=== PATIENT | female | born 1965 | race African-American/Black ===

== ENCOUNTER 2017-12-07 06:04 | Inpatient (IN) | payer OTHER ==
[2017-12-04 12:32] VITALS: BMI 47.8
[~2017-12-07 06:04] MED LIST: CELECOXIB 200 MG CAPSULE PO ONE; GABAPENTIN 300 MG CAPSULE (FP) PO ONE; PANTOPRAZOLE 40 MG TABLET (FP) PO ONE; oxyCODONE HCL 10 MG SUSTAINED ACTING TABLET PO ONE
[2017-12-07] MEDS ORDERED: PANTOPRAZOLE 40 MG TABLET (FP) ONE (06:53)
[2017-12-07] MEDS ORDERED: CELECOXIB 200 MG CAPSULE ONE (06:53)
[2017-12-07] MEDS ORDERED: GABAPENTIN 300 MG CAPSULE (FP) ONE (06:53)
[2017-12-07] MEDS ORDERED: oxyCODONE HCL 10 MG SUSTAINED ACTING TABLET ONE (06:53)
--- NOTE | 2017-12-07 07:20 | HP ---
Admitting History and Physical - Admission Chief Complaint: right hip osteoarthritis x years History of Present Illness: 52 year old female presents today in regard to her right hip. Longstanding history of right hip osteoarthritis. Patient complains of pain, limited ROM, difficulty ambulating and difficulty with activities of daily living. Patient has failed conservative treatment options including PO medication, activity modification, exercise programs and injections. As patient has failed conservative treatment measures, patient wishes to proceed with surgical intervention - right total hip arthroplasty, MAKOplasty. History Source: Patient - Past Medical History Cardiovascular: Yes: HTN Gastrointestinal: Yes: GERD ...LMP: 11/13/17 ...: No Musculoskeletal: Yes: Osteoarthritis Endocrine: Yes: Diabetes Mellitus - Past Surgical History Additional Past Surgical History: See written history & physical. - Smoking History Smoking history: Never smoked Have you smoked in the past 12 months: No - Alcohol/Substance Use Hx Alcohol Use: Yes (SOCIALLY) Home Medications - Allergies Allergies/Adverse Reactions: Allergies Allergy/AdvReac Type Severity Reaction Status Date / Time No Known Drug Allergies Allergy Unverified 02/18/14 13:38 SUTURES Allergy Severe REJECTED Uncoded 12/04/17 12:18 SUTURES - Home Medications Home Medications: Ambulatory Orders Meloxicam 15 mg PO DAILY tablet 02/18/14 Amlodipine Besylate 5 mg PO DAILY 12/04/17 Cholecalciferol (Vitamin D3) [Vitamin D3] 5,000 unit PO DAILY 12/04/17 Lisinopril [Prinivil] 10 mg PO DAILY 12/04/17 Metformin HCl [Metformin HCl ER] 500 mg PO DAILY 12/04/17 Omeprazole Magnesium [Prilosec Otc] 20 mg PO DAILY 12/04/17 Review of Systems - Review of Systems Musculoskeletal: reports: Decreased ROM (right hip), Joint Pain (right hip) Physical Examination Vital Signs: Vital Signs Temperature 98.4 F 12/07/17 06:39 Pulse Rate 110 H 12/07/17 06:39 Respiratory Rate 20 12/07/17 06:39 Blood Pressure 150/100 12/07/17 06:39 O2 Sat by Pulse Oximetry (%) Constitutional: Yes: Well Nourished, No Distress Eyes: Yes: Conjunctiva Clear HENT: Yes: Atraumatic, Normocephalic Neck: Yes: Supple Cardiovascular: Yes: Regular Rate and Rhythm Respiratory: Yes: Regular Gastrointestinal: Yes: Soft ...Rectal Exam: Yes: Deferred Musculoskeletal: Yes: Joint Stiffness (right hip), Joint Swelling (right hip) Assessment/Plan 52 year old female presents regarding her right hip. Longstanding history of right hip osteoarthritis. Patient complains of pain, limited ROM, difficulty ambulating and difficulty with activities of daily living. Patient has failed conservative treatment options including PO medication, activity modification, exercise programs and injections. As patient has failed conservative treatment measures, patient wishes to proceed with surgical intervention - right total hip arthroplasty, MAKOplasty. Pros, cons, risks, benefits and alternatives of a right total hip arthroplasty (MAKOplasty) were discussed at length with the patient. Patient confirms her understanding. Patient consents to proceed with a right total hip arthroplasty (MAKOplasty).
[2017-12-07] MEDS ORDERED: MIDAZOLAM HCL 2 MG/2 ML SINGLE DOSE VIAL ONE ×5 (07:22→10:49)
[2017-12-07] MEDS ORDERED: DEXAMETHASONE SOD PHOSPHATE/PF 10 MG/ML SDV ONE (07:22)
[2017-12-07] MEDS ORDERED: BUPIVACAINE HCL/PF (5 MG/ML) 30 ML VIAL IJ ONE (07:22)
[2017-12-07] MEDS ORDERED: LIDOCAINE 1% P/F 10 MG/ML VIAL ONE (07:23)
[2017-12-07] MEDS ORDERED: ceFAZolin SODIUM 1 GM VIAL ONE ×2 (07:28→09:11)
[2017-12-07] MEDS ORDERED: VANCOMYCIN 1,000 MG VIAL (RESTRICTED TO ID ONLY) ONE (07:28)
[2017-12-07] MEDS ORDERED: TRANEXAMIC ACID 1000 MG/10 ML VIAL ONE ×2 (07:28→09:12)
[2017-12-07] MEDS ORDERED: TRANEXAMIC ACID 1000 MG/10 ML VIAL IVPUSH ONE (08:00)
[2017-12-07] MEDS ORDERED: CEFAZOLIN 2 GM in DEXTROSE 5%-WATER - 50 ML IVPB ONE (08:00)
[2017-12-07] MEDS ORDERED: ROPIVICAINE 0.2%/MORPH PF/KETOROLAC - 51ML DISP.SYRINGE IA ONE ×2 (08:00→10:31)
[2017-12-07] MEDS ORDERED: SUCCINYLCHOLINE CHLORIDE 200 MG/10 ML VIAL ONE (09:11)
[2017-12-07] MEDS ORDERED: DEXAMETHASONE SOD PHOSPHATE 4 MG/1 ML VIAL ONE (09:11)
[2017-12-07] MEDS ORDERED: PROPOFOL 20 ML ONE (09:11)
[2017-12-07] MEDS ORDERED: ONDANSETRON 4 MG/2 ML VIAL ONE (09:11)
[2017-12-07] MEDS ORDERED: ePHEDrine SULFATE 50 MG/1 ML AMPULE ONE (09:19)
[2017-12-07] MEDS ORDERED: KETOROLAC TROMETHAMINE 30 MG/1 ML VIAL ONE (12:44)
[2017-12-07] MEDS ORDERED: traMADol HCL 50 MG TABLET ONE (12:44)
[2017-12-07] MEDS ORDERED: ACETAMINOPHEN INJECTION 100 ML IVPB ONE (12:44)
[2017-12-07] MEDS ORDERED: KETOROLAC TROMETHAMINE 30 MG/1 ML VIAL IVPUSH ONE (12:57)
[2017-12-07] MEDS ORDERED: ACETAMINOPHEN 1000 MG/100 ML VIAL (NON FORMULARY) IVPB ONE ×2 (13:00→13:11)
[2017-12-07] MEDS ORDERED: oxyCODONE HCL 5 MG TABLET PO PRN (13:02)
[2017-12-07] MEDS ORDERED: ONDANSETRON 4 MG/2 ML VIAL IVPUSH PRN ×2 (13:02→13:13)
[2017-12-07] MEDS ORDERED: PROMETHAZINE HCL 25 MG/1 ML VIAL IVPUSH PRN (13:02)
[2017-12-07] MEDS ORDERED: traMADol HCL 50 MG TABLET PO ONE (13:05)
--- NOTE | 2017-12-07 13:10 | OP ---
Operative Note - Note: Operative Date: 12/07/17 Pre-Operative Diagnosis: right hip severe OA Operation: right OLIVE ISABEL Post-Operative Diagnosis: Same as Pre-op Surgeon: Naun Sims Dials Inspector: Madison Carroll Anesthesia: Spinal Estimated Blood Loss (mls): 300
[2017-12-07] MEDS ORDERED: MAG HYDROX/AL HYDROX/SIMETH 30 ML UNIT-DOSE CUP PO PRN (13:13)
[2017-12-07] MEDS ORDERED: MAGNESIUM HYDROX 2400MG/30ML ORAL SUSPENSION 30 ML CUP PO PRN (13:13)
[2017-12-07] MEDS ORDERED: LACTATED RINGERS SOLUTION 1,000 ML IV SCH (13:15)
--- NOTE | 2017-12-07 13:56 | SPEC ---
DATE OF OPERATION: 12/07/2017 PREOPERATIVE DIAGNOSIS: Right hip osteoarthritis. POSTOPERATIVE DIAGNOSIS: Right hip osteoarthritis. PROCEDURE: Right total hip replacement with MAKOplasty robotic navigation. ATTENDING: Maria A Oliveira MD DIE TURNER: SHANA Hall ANESTHESIA: Spinal plus sedation. ESTIMATED BLOOD LOSS: 300 mL COMPLICATIONS: None. DISPOSITION: The patient was transferred to the PACU in stable condition. IMPLANTS USED: [place] Acc[place]ade II size 5 femoral component, Gisselle Tritanium 52-mm acetabular component with MDM bipolar head ball and 28-mm +4-mm offset inner ceramic head ball. Two acetabular screws, 20 and 30 mm. INDICATIONS: This is a 52-year-old female who presented to the office complaining of severe bilateral hip pain. She was seen and examined by Dr. Oliveira and diagnosed with severe bilateral hip osteoarthritis. She had complete degeneration of both of her hips and severe pain and ambulatory dysfunction. She had failed conservative management and was, therefore, indicated for a total hip replacement. We chose to proceed with the right first because that was the most painful. The risks, benefits, and alternatives to the procedure were explained to the patient in great detail, and she elected to proceed with surgery. On the day of surgery, the patient was taken to the operating room and placed on the OR table. Spinal anesthesia was administered by the anesthesiologist. The patient was then positioned in the lateral decubitus position on the table and all bony prominences were padded. An axillary roll was placed. The operative hip was then prepped and draped in the usual sterile fashion and intravenous antibiotics were given for infection prophylaxis. A surgical time-out was then performed with the team, and the patients identity, procedure, side, availability of implants, and the administration of antibiotics were confirmed. An approximately 15-cm longitudinal incision was made through the skin centered on the greater trochanter of the hip. This dissection was carried down through the subcutaneous tissues to the deep fascia. This fascia was then incised and a Cobra was placed around the inferior femoral neck. Electrocautery was used to reflect the anterior 40% of the gluteus medius and minimus starting at the musculotendinous junction and leaving a cuff for closure. This was reflected to reveal the capsule of the hip joint. An anterior capsulectomy was performed and the femoral head and neck were visualized. Grade 4 changes were noted diffusely throughout the joint. At this point, three small stab incisions were made superior to the main incision along the iliac crest. Three self-drilling Steinmann pins were then placed and the [employer] pelvic array was attached. Reference points on the limb were then entered into the robotic device and the limb length deficiency, offset, and femoral neck resection level were then calculated by the software. The hip was then dislocated with traction and external rotation. An oscillating saw was used to make the femoral neck cut at the level previously templated, and the femoral head was removed. Attention was then turned to the acetabulum. Retractors were then placed around the acetabulum and the labrum was removed. An acetabular checkpoint pin and the [employer] software were used to register the contours of the acetabulum. The acetabulum was then reamed in a single stage to the preoperatively templated size using the [employer] robotic arm. The appropriately sized cup was then impacted and had solid fixation as well as the preset inclination and version of 40 and 20 degrees, respectively. A polyethylene liner was then placed in the cup. Attention was then turned back to the femur, which was externally rotated for improved visualization. A femoral neck elevator was used to present the femoral neck cut, a box osteotome was used to enter the femoral canal, and a canal finder was used to go down the femoral shaft. The Apolinar broaches were used sequentially until the optimal scratch fit was achieved. This correlated with the preoperatively templated size. From here, several different offset head and neck configurations were tested until excellent stability and length were obtained. These measurements were quantified using the [employer] software. All trial components were then removed, the femur was copiously irrigated, and the final components were placed. Leg length and stability were checked again and found to be excellent. Irrigation was performed again. Wound closure was started by repairing the abductor muscles with a no. 2 FiberWire stitch in a Krackow configuration passed through bone tunnels in the greater trochanter and tied over a bony bridge. This repair was then reinforced with a 0 V-Loc 180 barbed suture. Next, no. 1 Polysorb and 0 V-Loc 180 were used to close the fascia. The deep subcutaneous tissue was closed with no. 1 Polysorb sutures, and 2-0 Polysorb was used for the superficial subcutaneous tissue. The skin was closed using both 3-0 V-Loc 90 suture in a running subcuticular fashion and SwiftSet skin adhesive. The Apolinar array and pins were removed from the iliac crest and the stab incision sites were irrigated and closed with 4-0 Polysorb sutures and SwiftSet skin adhesive. Once this was completed, a sterile dressing was applied. The patient was then awakened and taken to the PACU in stable condition. ADDENDUM 1: After final implants were placed, a 3-minute dilute Betadine lavage was performed. Following this, the wound was thoroughly irrigated with normal saline via pulsatile lavage, and would closure was begun. ADDENDUM 2: Please disregard the wound closure portion of the template. The patient recounts a remote history of an allergic reaction to VICRYL SUTURES. Therefore, these were not used. The arthrotomy and gluteus medius tendon were closed with FiberWire sutures in a Krackow-stitch pattern, oversewn with 0 V-Loc 180, running on a filament barbed suture. The deep fascia/IT band was closed with number 2 FiberWire suture and number 0 V-Loc 180. The deep subcutaneous tissue was closed with number 0 V-Loc 180 suture. The superficial subcutaneous tissue was closed with 2-0 V-Loc 90, running barbed monofilament suture. The skin was closed with 3-0 V-Loc 90 monofilament suture, and then, Dermabond skin adhesive was applied for additional closure strength and watertight seal. Following this, sterile Aquacel dressings were applied. MARIA A OLIVEIRA M.D. [id number]
[2017-12-07] MEDS ORDERED: KETOROLAC TROMETHAMINE 30 MG/1 ML VIAL IVPUSH SCH (14:00)
[2017-12-07] MEDS: oxyCODONE HCL 5 MG TABLET PO PRN ×2 (16:00→21:36)
[2017-12-07] MEDS: CEFAZOLIN 2 GM/D5W 2 GM/50 ML ML IVPB SCH (18:00)
[2017-12-07] MEDS: traMADol HCL 50 MG TABLET PO SCH (19:06)
[2017-12-07] MEDS: KETOROLAC TROMETHAMINE 30 MG/1 ML VIAL IVPUSH SCH (19:06)
[2017-12-07] MEDS: ACETAMINOPHEN 325 MG TABLET (FP) PO SCH (19:07)
[2017-12-07] MEDS ORDERED: DEXAMETHASONE SOD PHOSPHATE 10 MG/1 ML VIAL IVPB ONE (20:00)
[2017-12-07] MEDS: SENNOSIDES/DOCUSATE COMBO (SENNA PLUS) TABLET (UD) PO SCH (21:35)
[2017-12-07] MEDS: GABAPENTIN 300 MG CAPSULE (FP) PO SCH (21:36)
[2017-12-07] MEDS: CELECOXIB 200 MG CAPSULE PO SCH (21:36)
[2017-12-07] MEDS: oxyCODONE HCL 10 MG SUSTAINED ACTING TABLET PO SCH (21:36)
[2017-12-07] MEDS: ASCORBIC ACID 500 MG TABLET (FP) PO SCH (21:36)
[2017-12-07] MEDS ORDERED: GABAPENTIN 300 MG CAPSULE (FP) PO SCH (22:00)
[2017-12-08] MEDS: ACETAMINOPHEN 325 MG TABLET (FP) PO SCH ×4 (00:01→18:46)
[2017-12-08] MEDS: traMADol HCL 50 MG TABLET PO SCH ×4 (00:01→18:47)
[2017-12-08] MEDS: KETOROLAC TROMETHAMINE 30 MG/1 ML VIAL IVPUSH SCH ×2 (01:00→06:19)
[2017-12-08] MEDS: CEFAZOLIN 2 GM/D5W 2 GM/50 ML ML IVPB SCH (02:37)
[2017-12-08] MEDS: oxyCODONE HCL 5 MG TABLET PO PRN ×3 (06:35→21:40)
[2017-12-08] MEDS ORDERED: DEXAMETHASONE SOD PHOSPHATE 10 MG/1 ML VIAL ONE (06:39)
[2017-12-08 07:40] LABS: HEMATOCRIT 34.5 % (32.4-45.2); HEMOGLOBIN 11.3 GM/dl (10.7-15.3); MCH 27.3 pg (25.7-33.7); MCHC 32.6 g/dl (32.0-36.0); MEAN CELL VOLUME 83.7 fl (80-96); MEAN PLT VOLUME 7.9 fl (7.5-11.1); PLATELET COUNT 373 K/MM3 (134-434); RBC 4.12 M/mm3 (3.60-5.2); RDW 13.9 % (11.6-15.6); WHITE BLOOD COUNT 15.7 K/mm3 (4.0-10.8)
[2017-12-08 08:50] LABS: ANION GAP 10 (8-16); BLOOD UREA NITROGEN 20 mg/dl (7-18); CALCIUM 7.9 mg/dl (8.4-10.2); CHLORIDE 100 mmol/L (98-107); CO2 20 mmol/L (22-28); CREATININE 1.4 mg/dl (0.6-1.3); GLUCOSE,RANDOM 163 mg/dl (74-106); POTASSIUM 3.6 mmol/L (3.5-5.1); SODIUM 130 mmol/L (136-145)
[2017-12-08] MEDS: SENNOSIDES/DOCUSATE COMBO (SENNA PLUS) TABLET (UD) PO SCH ×2 (09:25→21:41)
[2017-12-08] MEDS: APIXABAN 2.5 MG TABLET PO SCH ×2 (09:25→21:40)
[2017-12-08] MEDS: GABAPENTIN 300 MG CAPSULE (FP) PO SCH ×2 (09:25→21:39)
[2017-12-08] MEDS: CELECOXIB 200 MG CAPSULE PO SCH (09:26)
[2017-12-08] MEDS: ASCORBIC ACID 500 MG TABLET (FP) PO SCH ×2 (09:26→21:41)
[2017-12-08] MEDS: LISINOPRIL 10 MG TABLET (FP) PO SCH (09:26)
[2017-12-08] MEDS: MULTIVITAMINS (DAILY MVI) TABLET (FP) PO SCH (09:26)
[2017-12-08] MEDS: amLODIPine BESYLATE 5 MG TABLET (FP) PO SCH (09:26)
[2017-12-08] MEDS: PANTOPRAZOLE 40 MG TABLET (FP) PO SCH (09:26)
[2017-12-08] MEDS: oxyCODONE HCL 10 MG SUSTAINED ACTING TABLET PO SCH ×2 (09:27→21:39)
--- NOTE | 2017-12-08 09:36 | PN ---
Progress Note, Physician Chief Complaint: s/p right total hip replacement under spinal anesthesia History of Present Illness: paravertebral nerve block for postop pain control - Current Medication List Current Medications: Active Medications Acetaminophen (Tylenol -) 650 mg PO Q6H [facility] Stop: 12/10/17 18:59 Last Admin: 12/08/17 06:19 Dose: 650 mg Al Hydroxide/Mg Hydroxide (Mylanta Oral Suspension -) 30 ml PO Q4H PRN PRN Reason: DYSPEPSIA Amlodipine Besylate (Norvasc -) 5 mg PO DAILY [facility] Last Admin: 12/08/17 09:26 Dose: 5 mg Apixaban (Eliquis -) 2.5 mg PO BID [facility] Last Admin: 12/08/17 09:25 Dose: 2.5 mg Ascorbic Acid (Vitamin C -) 500 mg PO BID [facility] Last Admin: 12/08/17 09:26 Dose: 500 mg Celecoxib (Celebrex -) 200 mg PO BID [facility] Last Admin: 12/08/17 09:26 Dose: 200 mg Fentanyl (Sublimaze Injection -) 50 mcg IVPUSH [id number] PRN PRN Reason: PAIN-PACU ORDER X 4 DOSES ONLY Gabapentin (Neurontin -) 300 mg PO BID [facility] Stop: 12/10/17 21:59 Last Admin: 12/08/17 09:25 Dose: 300 mg Lisinopril (Prinivil) 10 mg PO DAILY [facility] Last Admin: 12/08/17 09:26 Dose: 10 mg Magnesium Hydroxide (Milk Of Magnesia -) 30 ml PO PRN PRN PRN Reason: CONSTIPATION Metformin HCl (Glucophage Xr -) 500 mg PO DAILY [facility] Last Admin: 12/08/17 09:25 Dose: 500 mg Multivitamins/Minerals/Vitamin C (Tab-A-Vit -) 1 tab PO DAILY [facility] Last Admin: 12/08/17 09:26 Dose: 1 tab Ondansetron HCl (Zofran Injection) 4 mg IVPUSH Q6H PRN PRN Reason: NAUSEA Oxycodone HCl (Roxicodone -) 5 mg PO Q3H PRN PRN Reason: PAIN LEVEL 1-5 Oxycodone HCl (Roxicodone -) 10 mg PO Q3H PRN PRN Reason: PAIN LEVEL 6-10 Last Admin: 12/08/17 06:35 Dose: 10 mg Oxycodone HCl (Oxycontin -) 10 mg PO BID [facility] Stop: 12/10/17 13:02 Last Admin: 12/08/17 09:27 Dose: 10 mg Pantoprazole Sodium (Protonix -) 40 mg PO DAILY [facility] Last Admin: 12/08/17 09:26 Dose: 40 mg Promethazine HCl (Phenergan Injection -) 12.5 mg IVPUSH Q6H PRN PRN Reason: NAUSEA-FOR RESCUE AFTER 15 MIN Senna/Docusate Sodium (Pericolace -) 2 tablet PO BID [facility] Last Admin: 12/08/17 09:25 Dose: 2 tablet Tramadol HCl (Ultram -) 50 mg PO Q6H [facility] Last Admin: 12/08/17 06:19 Dose: 50 mg - Objective Vital Signs: Vital Signs Temperature 98.5 F 12/08/17 05:00 Pulse Rate 104 H 12/08/17 06:54 Respiratory Rate 18 12/08/17 08:18 Blood Pressure 110/70 12/08/17 06:54 O2 Sat by Pulse Oximetry (%) 96 12/08/17 08:18 Constitutional: Yes: Well Nourished Cardiovascular: Yes: WNL Respiratory: Yes: WNL Gastrointestinal: Yes: WNL Labs: CBC, BMP 12/08/17 07:15 12/08/17 07:15 Assessment/Plan Patient walking around with PT, no adverse effects of anesthetic, dept of anesthesia will sign off care at this time.
[2017-12-09] MEDS: ACETAMINOPHEN 325 MG TABLET (FP) PO SCH ×2 (00:29→06:03)
[2017-12-09] MEDS: traMADol HCL 50 MG TABLET PO SCH ×2 (00:30→06:02)
--- NOTE | 2017-12-09 01:56 | PN ---
Progress Note (short form) - Note Progress Note: Pt seen and examined. Doing well. AVSS Selected Entries 12/08/17 12/08/17 12/08/17 18:00 20:14 22:00 Temperature 98.8 F 97.6 F Pulse Rate 90 69 Respiratory 18 18 Rate Blood Pressure 130/66 121/71 O2 Sat by Pulse 98 Oximetry (%) Oxygen Delivery Room Air Method Laboratory Tests 12/08/17 12/08/17 07:15 07:15 WBC 15.7 H Hgb 11.3 Hct 34.5 Plt Count 373 Sodium 130 L Potassium 3.6 Chloride 100 Carbon Dioxide 20 L Anion Gap 10 BUN 20 H Creatinine 1.4 H Random Glucose 163 H Calcium 7.9 L Gen: NAD RLE: c/d/i, NVID A/P s/p R ISABEL PT/OOB D/C home in AM
--- NOTE | 2017-12-09 02:02 | DS ---
Physical Examination Vital Signs: Vital Signs Temperature 97.6 F 12/08/17 22:00 Pulse Rate 69 12/08/17 22:00 Respiratory Rate 18 12/08/17 22:00 Blood Pressure 121/71 12/08/17 22:00 O2 Sat by Pulse Oximetry (%) 98 12/08/17 20:14 Labs: CBC, BMP 12/08/17 07:15 12/08/17 07:15 Discharge Summary Reason For Visit: RIGHT HIP OSTEOARTHRITIS Current Active Problems Osteoarthritis of right hip (Acute) Procedures: Principal: Right ISABEL Hospital Course: Admitted for elective surgery. Procedure performed without complications. Pt received postoperative antibiotic prophylaxis and DVT ppx. Ambulated with physical therapy. Stable for discharge home with outpatient followup. Condition: Stable - Instructions Diet, Activity, Other Instructions: Dr Sims - Hip Replacement Instructions Keep the Aquacel dressing on until removed by Dr. Sims in 10-14 days - it is antibacterial and waterproof and you can shower with it on. Call the office for a follow-up appointment with Dr. Sims in 10-14 days. [phone] Take ELIQUIS 2.5mg twice daily for 35 days to prevent blood clots in your legs. Continue taking Prilosec (omeprazole) daily for 6 weeks to protect against heartburn and ulcers. Take Cephalexin (antibiotic) 3x/day for 10 days to help prevent skin infection. Take a multivitamin, stool softener and extra Vitamin C supplement daily. For pain: *Mild pain (1-3/10): Take 1 Tramadol tablet every 4 hours as needed. Moderate pain (4-6/10): Take 1 Tramadol tablet and 1 Percocet tablet every 4 hours as needed. Severe pain (7-10/10): Take 1 Tramadol tablet and 2 Percocet tablets every 4 hours as needed. Activity: You can put as much weight on the operative leg as you want. For the first 6 weeks, all you need to do is walk around the house, go up/down stairs, and sit down/get up. After 6 weeks when everything is healed (and bone has grown into the implant) you will be sent for more intensive outpatient physical therapy. Always use a walker or cane for balance and to prevent falls. Expect to see swelling / bruising from the operative site all the way down to your toes. Wear the Compression stocking on the operative side during the day to minimize how much swelling there is in your foot/ankle. Don't wear the stocking at night. You don't have to wear the stocking on the other side. Disposition: VNS/HOME HEALTH CARE - Home Medications Comprehensive Discharge Medication List: Ambulatory Orders Meloxicam 15 mg PO DAILY tablet 02/18/14 Amlodipine Besylate 5 mg PO DAILY 12/04/17 Cholecalciferol (Vitamin D3) [Vitamin D3] 5,000 unit PO DAILY 12/04/17 Lisinopril [Prinivil] 10 mg PO DAILY 12/04/17 Metformin HCl [Metformin HCl ER] 500 mg PO DAILY 12/04/17 Omeprazole Magnesium [Prilosec Otc] 20 mg PO DAILY 12/04/17 Apixaban [Eliquis -] 2.5 mg PO BID #70 tablet 12/09/17 Ascorbic Acid [Vitamin C -] 500 mg PO BID tablet 12/09/17 Cephalexin Monohydrate [Keflex -] 500 mg PO TID #30 capsule 12/09/17 Multivitamins [Multivit ([facility] Formulary)] 1 tab PO DAILY tab 12/09/17 Oxycodone HCl/Acetaminophen [Percocet 5-325 mg Tablet] 1 - 2 tab PO Q4H PRN #60 tablet MDD 10 12/09/17 Sennosides/Docusate Sodium [Pericolace -] 2 tablet PO BID tablet 12/09/17 traMADol HCL [Ultram -] 50 mg PO Q4H PRN #42 tablet MDD 6 12/09/17
[2017-12-09] MEDS: oxyCODONE HCL 5 MG TABLET PO PRN ×2 (06:03→10:32)
[2017-12-09 07:32] VITALS: BP 112/69; PULSE 102; TEMP 97.9
[2017-12-09 08:32] LABS: ANION GAP 11 (8-16); BLOOD UREA NITROGEN 29 mg/dl (7-18); CHLORIDE 100 mmol/L (98-107); CO2 21 mmol/L (22-28); GLUCOSE,RANDOM 117 mg/dl (74-106); POTASSIUM 3.4 mmol/L (3.5-5.1); SODIUM 132 mmol/L (136-145)
[2017-12-09 08:48] LABS: HEMATOCRIT 31.8 % (32.4-45.2); HEMOGLOBIN 10.4 GM/dl (10.7-15.3); MCH 27.4 pg (25.7-33.7); MCHC 32.7 g/dl (32.0-36.0); MEAN CELL VOLUME 83.9 fl (80-96); MEAN PLT VOLUME 8.6 fl (7.5-11.1); PLATELET COUNT 350 K/MM3 (134-434); RBC 3.79 M/mm3 (3.60-5.2); RDW 13.8 % (11.6-15.6); WHITE BLOOD COUNT 17.1 K/mm3 (4.0-10.8)
[2017-12-09] MEDS: APIXABAN 2.5 MG TABLET PO SCH (10:32)
[2017-12-09] MEDS: oxyCODONE HCL 10 MG SUSTAINED ACTING TABLET PO SCH (10:32)
[2017-12-09] MEDS: MULTIVITAMINS (DAILY MVI) TABLET (FP) PO SCH (10:32)
[2017-12-09] MEDS: PANTOPRAZOLE 40 MG TABLET (FP) PO SCH (10:33)
[2017-12-09] MEDS: SENNOSIDES/DOCUSATE COMBO (SENNA PLUS) TABLET (UD) PO SCH (10:33)
[2017-12-09] MEDS: ASCORBIC ACID 500 MG TABLET (FP) PO SCH (10:33)
[2017-12-09] MEDS: LISINOPRIL 10 MG TABLET (FP) PO SCH (10:33)
[2017-12-09] MEDS: GABAPENTIN 300 MG CAPSULE (FP) PO SCH (10:33)
[2017-12-09] MEDS: amLODIPine BESYLATE 5 MG TABLET (FP) PO SCH (10:33)
--- NOTE | 2017-12-11 11:31 | PATH ---
Surgical Pathology Report Patient Name: ANTIONE PASTOR Med. Rec. #: [id number] /Age/Gender: 1965 (Age: 52) / F Account: [id number] Location: [facility] Taken: 12/07/2017 Received: 12/07/2017 Reported: 12/11/2017 Physicians: Naun Sims M.D. Specimen(s) Received RIGHT FEMORAL HEAD Clinical History Right hip osteoarthritis Final Diagnosis RIGHT FEMORAL HEAD, RESECTION: DEGENERATIVE JOINT DISEASE, RIGHT HIP. Electronically Signed Rosie Olmos M.D. Gross Description Received in formalin, labeled "right femoral head," is a 4.5 x 4.5 x 3.8 cm. femoral head with a 1.1 cm length portion of femoral left attached. The margin of resection is smooth. There is a 4 cm in greatest dimension area of eburnation present. The remaining articular surface is crawford-brown and diffusely granular. The underlying trabecular bone is yellow and hard. A shared services representative section is submitted in one cassette, following decalcification. /12/08/2017 [facility]12/08/2017
== END 2017-12-09 10:15 | disposition home health service (06) | DRG 470 ==
LOC: FM/S 06:04 → UNDOADMIN 06:04
PROVIDERS: ADMIT Student in an Organized Health Care Education/Training Program; ATTEND Student in an Organized Health Care Education/Training Program
PROC: 8E0W0CZ Robotic Assisted Procedure of Trunk Region, Open Approach (ICD-10-PCS; 2017-12-07)
PROC: 0SR904Z Replacement of Right Hip Joint with Ceramic on Polyethylene Synthetic Substitute, Open Approach (ICD-10-PCS; principal; 2017-12-07 09:53)
DX: M16.11 Unilateral primary osteoarthritis, right hip (principal); I10 Essential (primary) hypertension; K21.9 Gastro-esophageal reflux disease without esophagitis; E11.9 Type 2 diabetes mellitus without complications
CPT/HCPCS: 36415; 73502-TC-RT; 80048; 82962; 84703; 85027; 88304-TC; 88311-TC; 97116-GP; 97162-GP; J0131; J1100

== ENCOUNTER 2018-12-27 09:01 | Inpatient (IN) | payer OTHER ==
[2018-12-17 12:49] VITALS: BMI 47.7
--- NOTE | 2018-12-27 07:46 | HP ---
Admitting History and Physical - Admission History of Present Illness: 53 year old female presents in regard to their left hip. Longstanding history of left hip osteoarthritis. Patient complains of pain, limited ROM, difficulty ambulating and difficulty completing ADLs. Patient has failed conservative treatment measures including PO medications, injections, exercise programs and activity modification. At this point, patient wishes to proceed with surgical intervention, a left total hip arthroplasty - MAKOplasty. History Source: Patient - Past Medical History Cardiovascular: Yes: HTN Gastrointestinal: Yes: GERD ...LMP: 11/13/17 Musculoskeletal: Yes: Osteoarthritis Endocrine: Yes: Diabetes Mellitus - Past Surgical History Additional Past Surgical History: See written history & physical. Right total hip arthroplasty - Smoking History Smoking history: Never smoked Have you smoked in the past 12 months: No - Alcohol/Substance Use Hx Alcohol Use: Yes (SOCIALLY) Home Medications - Allergies Allergies/Adverse Reactions: Allergies Allergy/AdvReac Type Severity Reaction Status Date / Time No Known Drug Allergies Allergy Verified 12/08/17 08:24 SUTURES Allergy Severe REJECTED Uncoded 12/14/18 11:37 SUTURES - Home Medications Home Medications: Ambulatory Orders Meloxicam 15 mg PO DAILY tablet 02/18/14 Amlodipine Besylate 5 mg PO DAILY 12/04/17 Omeprazole Magnesium [Prilosec Otc] 20 mg PO DAILY 12/04/17 Multivitamins [Multivit ([facility] Formulary)] 1 tab PO DAILY tab 12/09/17 Ascorbic Acid [Vitamin C -] 500 mg PO DAILY 12/14/18 Review of Systems - Review of Systems Musculoskeletal: reports: Decreased ROM (left hip), Joint Pain (left hip) Physical Examination Constitutional: Yes: Well Nourished, No Distress Eyes: Yes: Conjunctiva Clear HENT: Yes: Atraumatic Neck: Yes: Supple Respiratory: Yes: Regular Gastrointestinal: Yes: Soft ...Rectal Exam: Yes: Deferred Musculoskeletal: Yes: Joint Stiffness (left hip) Assessment/Plan 53 year old female presents in regard to their left hip. Longstanding history of left hip osteoarthritis. Patient complains of pain, limited ROM, difficulty ambulating and difficulty completing ADLs. Patient has failed conservative treatment measures including PO medications, injections, exercise programs and activity modification. At this point, patient wishes to proceed with surgical intervention, a left total hip arthroplasty - MAKOplasty. Pros, cons, risks benefits and alternatives of a left total hip arthroplasty, MAKOplasty were discussed with the patient at length. Patient confirms their understanding and consents to proceed with a left total hip arthroplasty, MAKOplasty.
[2018-12-27] MEDS ORDERED: CELECOXIB 200 MG CAPSULE ONE (10:32)
[2018-12-27] MEDS ORDERED: GABAPENTIN 300 MG CAPSULE (FP) ONE (10:32)
[2018-12-27] MEDS ORDERED: oxyCODONE HCL 10 MG SUSTAINED ACTING TABLET ONE (10:32)
[2018-12-27] MEDS ORDERED: PANTOPRAZOLE 40 MG TABLET (FP) ONE (10:36)
[2018-12-27] MEDS ORDERED: MIDAZOLAM HCL 2 MG/2 ML SINGLE DOSE VIAL ONE ×4 (11:17→16:10)
[2018-12-27] MEDS ORDERED: DEXAMETHASONE SOD PHOSPHATE/PF 10 MG/ML SDV ONE (11:17)
[2018-12-27] MEDS ORDERED: ROPIVACAINE HCL 0.5% 30ML VIAL ONE (11:18)
[2018-12-27] MEDS ORDERED: EPINEPHrine/PF 1 MG/1 ML (1:1,000) AMPULE ONE (11:18)
[2018-12-27] MEDS ORDERED: VANCOMYCIN 1,000 MG VIAL (RESTRICTED TO ID ONLY) ONE (11:29)
[2018-12-27] MEDS ORDERED: ceFAZolin SODIUM 1 GM VIAL ONE ×2 (11:29→14:24)
[2018-12-27] MEDS ORDERED: TRANEXAMIC ACID 1000 MG/10 ML VIAL ONE ×2 (11:29→14:24)
[2018-12-27] MEDS ORDERED: ROPIVICAINE 0.2%/MORPH PF/KETOROLAC - 51ML DISP.SYRINGE IA ONE ×3 (11:31→17:18)
[2018-12-27] MEDS ORDERED: TRANEXAMIC ACID 1000 MG/10 ML VIAL IVPUSH ONE ×2 (12:15→17:17)
[2018-12-27] MEDS ORDERED: CEFAZOLIN 2 GM in DEXTROSE 5%-WATER - 50 ML IVPB ONE (12:15)
[2018-12-27] MEDS ORDERED: PROPOFOL 20 ML ONE ×2 (13:27→16:31)
[2018-12-27] MEDS ORDERED: BUPIVACAINE HCL/PF 0.5% (5MG/ML) 10 ML VIAL ONE (13:28)
[2018-12-27] MEDS ORDERED: EPHEDRINE SULFATE/0.9% NACL/PF 50 MG/10 ML SYRINGE NR ONE (14:26)
[2018-12-27] MEDS ORDERED: VANCOMYCIN 1,000 MG VIAL (RESTRICTED TO ID ONLY) IVPB ONE (16:55)
[2018-12-27] MEDS ORDERED: ONDANSETRON 4 MG/2 ML VIAL IVPUSH PRN ×2 (17:15→19:06)
[2018-12-27] MEDS ORDERED: oxyCODONE HCL 5 MG TABLET PO PRN (17:15)
[2018-12-27] MEDS ORDERED: PROMETHAZINE HCL 25 MG/1 ML VIAL IVPUSH PRN (17:15)
[2018-12-27] MEDS ORDERED: BACITRACIN 15 GM TUBE TOPICAL OINTMENT ONE (17:34)
[2018-12-27] MEDS ORDERED: ONDANSETRON 4 MG/2 ML VIAL ONE (18:14)
[2018-12-27] MEDS ORDERED: traMADol HCL 50 MG TABLET ONE (18:41)
[2018-12-27] MEDS ORDERED: ACETAMINOPHEN INJECTION 100 ML IVPB ONE (18:41)
[2018-12-27] MEDS ORDERED: KETOROLAC TROMETHAMINE 30 MG/1 ML VIAL ONE (18:41)
[2018-12-27] MEDS: traMADol HCL 50 MG TABLET PO SCH (18:45)
[2018-12-27] MEDS: KETOROLAC TROMETHAMINE 30 MG/1 ML VIAL IVPUSH SCH (18:45)
--- NOTE | 2018-12-27 19:00 | OP ---
Operative Note - Note: Operative Date: 12/27/18 Pre-Operative Diagnosis: left hip OA Operation: left ISABEL Post-Operative Diagnosis: Same as Pre-op Surgeon: Naun Sims Link Assembler: Madison Carroll Anesthesia: Spinal Estimated Blood Loss (mls): 500
[2018-12-27] MEDS ORDERED: ACETAMINOPHEN 1000 MG/100 ML VIAL (NON FORMULARY) IVPB ONE (19:01)
[2018-12-27] MEDS ORDERED: MAG HYDROX/AL HYDROX/SIMETH 30 ML UNIT-DOSE CUP PO PRN (19:06)
[2018-12-27] MEDS ORDERED: MAGNESIUM HYDROX 2400MG/30ML ORAL SUSPENSION 30 ML CUP PO PRN (19:06)
[2018-12-27] MEDS ORDERED: LACTATED RINGERS SOLUTION 1,000 ML IV SCH (19:15)
[2018-12-27] MEDS: GABAPENTIN 300 MG CAPSULE (FP) PO SCH (21:24)
[2018-12-27] MEDS: ATORVASTATIN CA 40 MG TABLET (FP) PO SCH (21:24)
[2018-12-27] MEDS: ASCORBIC ACID 500 MG TABLET (FP) PO SCH (21:24)
[2018-12-27] MEDS: CELECOXIB 200 MG CAPSULE PO SCH (21:24)
[2018-12-27] MEDS: oxyCODONE HCL 10 MG SUSTAINED ACTING TABLET PO SCH (21:24)
[2018-12-27] MEDS: SENNOSIDES/DOCUSATE COMBO (SENNA PLUS) TABLET (UD) PO SCH (21:24)
[2018-12-28] MEDS ORDERED: DEXAMETHASONE SOD PHOSPHATE 10 MG/1 ML VIAL IVPB ONE
[2018-12-28] MEDS: ACETAMINOPHEN 325 MG TABLET (FP) PO SCH ×6 (00:07→22:41)
[2018-12-28] MEDS: KETOROLAC TROMETHAMINE 30 MG/1 ML VIAL IVPUSH SCH ×3 (01:08→12:23)
[2018-12-28] MEDS: traMADol HCL 50 MG TABLET PO SCH ×4 (01:08→19:14)
[2018-12-28] MEDS: CEFAZOLIN 2 GM/D5W 2 GM/50 ML ML IVPB SCH ×2 (01:08→09:43)
[2018-12-28 07:51] LABS: CALCIUM 8.6 mg/dl (8.5-10); POTASSIUM 4.4 mmol/L (3.5-5.1)
[2018-12-28 07:56] LABS: HEMATOCRIT 33.6 % (32.4-45.2); HEMOGLOBIN 11.4 GM/dl (10.7-15.3); MCH 28.6 pg (25.7-33.7); MCHC 33.9 g/dl (32.0-36.0); MEAN CELL VOLUME 84.3 fl (80-96); MEAN PLT VOLUME 8.9 fl (7.5-11.1); PLATELET COUNT 326 K/MM3 (134-434); RBC 3.99 M/mm3 (3.60-5.2); RDW 13.5 % (11.6-15.6); WHITE BLOOD COUNT 9.9 K/mm3 (4.0-10.8)
[2018-12-28] MEDS: ASPIRIN 325 MG TABLET PO SCH (08:39)
[2018-12-28] MEDS: PANTOPRAZOLE 40 MG TABLET (FP) PO SCH (09:36)
[2018-12-28] MEDS: GABAPENTIN 300 MG CAPSULE (FP) PO SCH ×2 (09:36→21:37)
[2018-12-28] MEDS: CELECOXIB 200 MG CAPSULE PO SCH ×2 (09:36→21:37)
[2018-12-28] MEDS: ASCORBIC ACID 500 MG TABLET (FP) PO SCH ×2 (09:36→21:37)
[2018-12-28] MEDS: MULTIVITAMINS (DAILY MVI) TABLET (FP) PO SCH (09:36)
[2018-12-28] MEDS: SENNOSIDES/DOCUSATE COMBO (SENNA PLUS) TABLET (UD) PO SCH ×2 (09:37→21:37)
[2018-12-28] MEDS: oxyCODONE HCL 10 MG SUSTAINED ACTING TABLET PO SCH ×2 (09:37→21:37)
[2018-12-28] MEDS: amLODIPine BESYLATE 5 MG TABLET (FP) PO SCH (09:37)
[2018-12-28] MEDS ORDERED: amLODIPine BESYLATE 5 MG TABLET (FP) PO SCH (10:00)
--- NOTE | 2018-12-28 12:02 | PN ---
Progress Note (short form) - Note Progress Note: ANESTHESIA POSTOP 53 YO FEMALE POD#1 S/P LTHA, SPINAL Patient resting in chair. Taylor adequately controlled. No n/v. Tolerating PO VSS, Afebrile Continue current care, encouraged IS and PT, no anesthetic complications.
[2018-12-28] MEDS: oxyCODONE HCL 5 MG TABLET PO PRN ×2 (15:13→20:28)
--- NOTE | 2018-12-28 20:22 | PN ---
Progress Note (short form) - Note Progress Note: Pt seen and examined. Doing well. AVSS Selected Entries 12/28/18 14:07 Temperature 98.0 F Pulse Rate 95 H Respiratory 20 Rate Blood Pressure 113/71 O2 Sat by Pulse 98 Oximetry (%) Laboratory Tests 12/28/18 12/28/18 07:00 07:00 WBC 9.9 Hgb 11.4 Hct 33.6 Plt Count 326 Sodium 137 Potassium 4.4 Chloride 104 Carbon Dioxide 23 Anion Gap 10 BUN 17.0 Creatinine 1.0 Est GFR (CKD-EPI)AfAm 75.01 Est GFR (CKD-EPI)NonAf 64.72 Random Glucose 209 H Calcium 8.6 Gen: NAD RLE: c/d/i, NVID A/P 53yo female POD#1 s/p L ISABEL PT/OOB D/C home in AM
--- NOTE | 2018-12-28 20:30 | DS ---
Physical Examination Vital Signs: Vital Signs Temperature 98.0 F 12/28/18 14:07 Pulse Rate 95 H 12/28/18 14:07 Respiratory Rate 20 12/28/18 14:07 Blood Pressure 113/71 12/28/18 14:07 O2 Sat by Pulse Oximetry (%) 98 12/28/18 14:07 Labs: CBC, BMP 12/28/18 07:00 12/28/18 07:00 Discharge Summary Reason For Visit: LEFT HIP OSTEOARTHRITIS Current Active Problems Osteoarthritis of left hip (Acute) Procedures: Principal: left [facility] Hospital Course: Admitted for elective surgery. Procedure performed without complications. Pt received postoperative antibiotic prophylaxis and DVT ppx. Ambulated with physical therapy. Stable for discharge home with outpatient followup. Condition: Stable - Instructions Diet, Activity, Other Instructions: Dr Sims - Hip Replacement Instructions Keep the Aquacel dressing on until removed by Dr. Sism in 3 weeks - it is antibacterial and waterproof and you can shower with it on. If the center portion of the dressing becomes filled with drainage, call the office to come in and have it changed. Call the office for a follow-up appointment with Dr. Sims in 3 weeks. Take one Aspirin 325mg daily for 6 weeks to prevent blood clots in your legs. Take one Pantoprazole 40mg daily for 6 weeks to protect against heartburn and ulcers. Take Cephalexin (antibiotic) 3x/day for 14 days to help prevent skin infection. Take Celebrex 200mg twice daily for 30 days to reduce swelling and inflammation. Take a multivitamin, stool softener and extra Vitamin C supplement daily. For pain: *Mild pain (1-3/10): Take 1 Tramadol tablet every 4 hours as needed. Moderate pain (4-6/10): Take 1 Tramadol tablet and 1 Percocet tablet every 4 hours as needed. Severe pain (7-10/10): Take 1 Tramadol tablet and 2 Percocet tablets every 4 hours as needed. Activity: You can put as much weight on the operative leg as you want. For the first 6 weeks, all you need to do is walk around the house, go up/down stairs, and sit down/get up. After 6 weeks when everything is healed (and bone has grown into the implant) you will be sent for more intensive outpatient physical therapy. Always use a walker or cane for balance and to prevent falls. Expect to see swelling / bruising from the operative site all the way down to your toes. Wear the Compression stocking on the operative side during the day to minimize how much swelling there is in your foot/ankle. Don't wear the stocking at night. You don't have to wear the stocking on the other side. Disposition: VNS/HOME HEALTH CARE - Home Medications Comprehensive Discharge Medication List: Ambulatory Orders Multivitamins [Multivit ([facility] Formulary)] 1 tab PO DAILY tab 12/09/17 Amlodipine Besylate [Norvasc -] 10 mg PO DAILY tablet 12/28/18 Ascorbic Acid [Vitamin C -] 500 mg PO BID tablet 12/28/18 Aspirin [ASA -] 325 mg PO DAILY@0800 tablet 12/28/18 Atorvastatin Ca [Lipitor] 40 mg PO HS tablet 12/28/18 Celecoxib [CeleBREX -] 200 mg PO BID #60 capsule 12/28/18 Cephalexin Monohydrate [Keflex -] 500 mg PO TID #42 capsule 12/28/18 Oxycodone HCl/Acetaminophen [Percocet 5-325 mg Tablet] 1 - 2 tab PO Q4H PRN #60 tablet MDD 10 12/28/18 Pantoprazole Sodium [Protonix -] 40 mg PO DAILY #40 tablet.ec 12/28/18 Sennosides/Docusate Sodium [Pericolace -] 2 tablet PO BID tablet 12/28/18 traMADol HCL [Ultram -] 50 mg PO Q4H PRN #60 tablet MDD 6 12/28/18
[2018-12-28] MEDS: ATORVASTATIN CA 40 MG TABLET (FP) PO SCH (21:37)
[2018-12-29] MEDS: traMADol HCL 50 MG TABLET PO SCH ×2 (01:00→06:44)
[2018-12-29] MEDS: ACETAMINOPHEN 325 MG TABLET (FP) PO SCH ×2 (05:53→11:00)
[2018-12-29] MEDS: ASPIRIN 325 MG TABLET PO SCH (08:28)
[2018-12-29 08:38] LABS: HEMATOCRIT 29.9 % (32.4-45.2); HEMOGLOBIN 9.9 GM/dl (10.7-15.3); MCH 28.1 pg (25.7-33.7); MCHC 33.1 g/dl (32.0-36.0); MEAN CELL VOLUME 84.9 fl (80-96); MEAN PLT VOLUME 8.9 fl (7.5-11.1); PLATELET COUNT 284 K/MM3 (134-434); RBC 3.52 M/mm3 (3.60-5.2); RDW 13.6 % (11.6-15.6); WHITE BLOOD COUNT 19.3 K/mm3 (4.0-10.8)
[2018-12-29 09:42] VITALS: BP 124/85; PULSE 99; TEMP 98
[2018-12-29] MEDS: CELECOXIB 200 MG CAPSULE PO SCH (09:44)
[2018-12-29] MEDS: GABAPENTIN 300 MG CAPSULE (FP) PO SCH (09:44)
[2018-12-29] MEDS: PANTOPRAZOLE 40 MG TABLET (FP) PO SCH (09:44)
[2018-12-29] MEDS: oxyCODONE HCL 10 MG SUSTAINED ACTING TABLET PO SCH (09:44)
[2018-12-29] MEDS: ASCORBIC ACID 500 MG TABLET (FP) PO SCH (09:44)
[2018-12-29] MEDS: SENNOSIDES/DOCUSATE COMBO (SENNA PLUS) TABLET (UD) PO SCH (09:44)
[2018-12-29] MEDS: amLODIPine BESYLATE 5 MG TABLET (FP) PO SCH (09:44)
[2018-12-29] MEDS: MULTIVITAMINS (DAILY MVI) TABLET (FP) PO SCH (09:44)
--- NOTE | 2018-12-31 12:47 | PATH ---
Surgical Pathology Report Patient Name: ANTIONE PASTOR Med. Rec. #: [id number] /Age/Gender: 1965 (Age: 53) / F Account: [id number] Location: [facility] Taken: 12/27/2018 Received: 12/27/2018 Reported: 12/31/2018 Physicians: Naun Sims M.D. Specimen(s) Received LEFT FEMORAL HEAD Clinical History Left hip osteoarthritis Final Diagnosis FEMORAL HEAD, LEFT, TOTAL HIP REPLACEMENT: DEGENERATIVE JOINT DISEASE. Electronically Signed Samina Melgoza M.D. Gross Description Received in formalin, labeled "left femoral head," is a 5.0 x 4.8 x 4.2 cm. femoral head with a 1.3 cm in length portion of femoral neck attached. The margin of resection is smooth. There is a 4.1 cm in greatest dimension area of eburnation present. The remaining articular surface is crawford-brown and diffusely granular. The underlying trabecular bone is yellow and hard. A underwriting service representative section is submitted in one cassette, following decalcification. 12/28/2018 [facility]12/28/2018
== END 2018-12-29 11:20 | disposition home health service (06) | DRG 470 ==
LOC: FM/S 09:46
PROVIDERS: ADMIT Student in an Organized Health Care Education/Training Program; ATTEND Student in an Organized Health Care Education/Training Program
PROC: 0SRB0JZ Replacement of Left Hip Joint with Synthetic Substitute, Open Approach (ICD-10-PCS; principal; 2018-12-27 14:51)
DX: M16.12 Unilateral primary osteoarthritis, left hip (principal); I10 Essential (primary) hypertension; K21.9 Gastro-esophageal reflux disease without esophagitis; E11.9 Type 2 diabetes mellitus without complications
CPT/HCPCS: 36415; 73502-TC-LT-FY; 80048; 84703; 85027; 88305-TC; 88311-TC; 94760; 97116-GP; 97162-GP; J0131; J1100

== ENCOUNTER 2020-07-08 14:46 | Emergency (ER) | payer OTHER ==
[2020-07-08 15:24] VITALS: BP 142/88; PULSE 82; TEMP 99; BMI 44.1
== END 2020-07-08 16:36 | disposition home or self-care (01) ==
LOC: FER 14:46
DX: U07.1 COVID-19 (principal)
CPT/HCPCS: 71045-TC-FY; 99284-25; C9803; U0003

== ENCOUNTER 2020-07-09 08:37 | Emergency (ER) | payer OTHER ==
[2020-07-09 09:11] VITALS: BMI 44.1
[2020-07-09] MEDS ORDERED: BAMLANIVIMAB 700 MG in SODIUM CHLORIDE 250 ML IVPB ONE (09:32)
[2020-07-09 12:13] VITALS: TEMP 98
[2020-07-09 12:21] LABS: EOS % 0.1 % (0-4.5); HEMATOCRIT 40.4 % (32.4-45.2); HEMOGLOBIN 13.5 GM/dL (10.7-15.3); LYMPH % 26.6 % (8-40); MCH 27.4 pg (25.7-33.7); MCHC 33.3 g/dl (32.0-36.0); MEAN CELL VOLUME 82.3 fl (80-96); MEAN PLT VOLUME 8.1 fl (7.5-11.1); NEUT % 61.3 % (42.8-82.8); PLATELET COUNT 322 K/MM3 (134-434); RBC 4.91 M/mm3 (3.60-5.2); RDW 14.1 % (11.6-15.6); WHITE BLOOD COUNT 6.6 K/mm3 (4.0-10.0)
[2020-07-09 12:47] LABS: POTASSIUM 3.5 mmol/L (3.5-5.1)
[2020-07-09 12:49] LABS: CALCIUM 8.5 mg/dL (8.5-10.1)
[2020-07-09 12:50] LABS: ALBUMIN 3.6 g/dl (3.4-5.0); BLOOD UREA NITROGEN 11.2 mg/dL (7-18)
[2020-07-09 12:53] LABS: CREATININE 0.8 mg/dL (0.55-1.3)
[2020-07-09 12:54] LABS: BILIRUBIN,TOTAL 0.5 mg/dL (0.2-1)
[2020-07-09 12:55] LABS: TOT PROT 8.1 g/dl (6.4-8.2)
[2020-07-09 13:34] VITALS: BP 136/78; PULSE 89
[2020-07-09] MEDS ORDERED: ACETAMINOPHEN 1000 MG/100 ML VIAL (NON FORMULARY) IVPB ONE (14:03)
[2020-07-09] MEDS ORDERED: ACETAMINOPHEN INJECTION 100 ML IVPB ONE (14:14)
== END 2020-07-09 15:05 | disposition home or self-care (01) ==
LOC: JER 08:37
PROC: 3E0333Z Introduction of Anti-inflammatory into Peripheral Vein, Percutaneous Approach (ICD-10-PCS; principal; 2020-07-09)
PROC: 3E03329 Introduction of Other Anti-infective into Peripheral Vein, Percutaneous Approach (ICD-10-PCS; 2020-07-09)
DX: U07.1 COVID-19 (principal)
CPT/HCPCS: 36415; 80053; 85025; 99284-25; J0131; M0239; Q0239